=== PATIENT | male | born 1940 | race Caucasian/White ===

== ENCOUNTER 2021-03-20 19:15 | Emergency (ER) | payer MEDICARE, OTHER ==
[2021-03-20] MEDS ORDERED: Lidocaine 2% Jelly 10 ML Urojet MUCMEM ONE (19:34)
[2021-03-20] MEDS ORDERED: HYDROmorphone 0.5 MG/0.5 ML Syringe IM ONE (20:59)
--- NOTE | 2021-03-20 21:06 | EDM.PDOC ---
ED HPI GENERAL MEDICAL PROBLEM - General Chief Complaint: Genitourinary Problem Stated Complaint: PROSTATE ISSUES Time Seen by Provider: 03/20/21 19:33 Source of Information: Reports: Patient History Limitations: Reports: No Limitations - History of Present Illness INITIAL COMMENTS - FREE TEXT/NARRATIVE: Tang is an 80-year-old male presenting to the ED for urinary retention. The patient states he was last able to void a small amount this morning. The patient has a previous history for a TURP about 15 years ago. He has a history of bladder cancer and prostate cancer and is status post radiation therapy for the prostate cancer. Has had intermittent difficulty with urinary retention. He denies any fever, chills, backache but does have significant suprapubic pressure and tenderness. He has having increasing pain. Lower Abdomen Pain Score (Numeric/FACES): 8 - Related Data Allergies Allergy/AdvReac Type Severity Reaction Status Date / Time No Known Allergies Allergy Verified 03/20/21 19:49 Social & Family History - Tobacco Use Tobacco Use Status *Q: Former Tobacco User Used Tobacco, but Quit: Yes Month/Year Tobacco Last Used: 1979 - Caffeine Use Caffeine Use: Reports: Coffee Caffeine Use Comment: 2-3 cups per day - Recreational Drug Use Recreational Drug Use: No ED ROS GENERAL - Review of Systems Review Of Systems: See Below Constitutional: Reports: No Symptoms HEENT: Reports: No Symptoms Respiratory: Reports: No Symptoms Cardiovascular: Reports: No Symptoms Endocrine: Reports: No Symptoms GI/Abdominal: Reports: No Symptoms : Reports: Pain (Pelvic pain extending to the suprapubic region), Urinary Retention Musculoskeletal: Reports: No Symptoms Skin: Reports: No Symptoms Neurological: Reports: No Symptoms Psychiatric: Reports: No Symptoms Hematologic/Lymphatic: Reports: No Symptoms Immunologic: Reports: No Symptoms ED EXAM, RENAL/ - Physical Exam Exam: See Below Exam Limited By: No Limitations General Appearance: Alert, Anxious, Mild Distress Respiratory/Chest: No Respiratory Distress, Lungs Clear, Normal Breath Sounds Cardiovascular: Normal Peripheral Pulses, Regular Rate, Rhythm, No Murmur GI/Abdominal: Normal Bowel Sounds, Soft, Tender (Suprapubic tenderness and fullness) Extremities: Other (Patient had a deer tick on the upper inner left thigh. Is a minimal amount of redness around the embedded deer tick head.) Neurological: Alert, Oriented, Normal Cognition, No Motor/Sensory Deficits Psychiatric: Normal Affect Skin Exam: Erythema (Around the head of the deer tick that is embedded.) Lymphatic: No Adenopathy Course - Vital Signs Last Recorded V/S: Last Vital Signs Temp 36.1 C 03/20/21 20:11 Pulse 72 03/20/21 20:11 Resp 16 03/20/21 20:11 BP 199/81 H 03/20/21 20:11 Pulse Ox 95 03/20/21 20:11 - Orders/Labs/Meds Orders: Active Orders 24 hr Category Date Time Status Garcia Catheter Insertion [Insert Urinary Catheter] [OM. Care 03/20/21 19:45 Ordered PC] Q24H Urinary Catheter Assessment [RC] ASDIRECTED Care 03/20/21 19:34 Active UA W/MICROSCOPIC [URIN] Stat Lab 03/20/21 19:33 Ordered HYDROmorphone [Dilaudid] Med 03/20/21 20:59 Once 0.5 mg IM ONETIME ONE Medication Orders Hydromorphone HCl (Hydromorphone 0.5 Mg/0.5 Ml Syringe) 0.5 mg IM ONETIME ONE Stop: 03/20/21 21:00 Meds: Medications Generic Name Dose Route Start Last Admin Trade Name Freq PRN Reason Stop Dose Admin Hydromorphone HCl 0.5 mg 03/20/21 20:59 Hydromorphone 0.5 Mg/0.5 Ml Syringe IM 03/20/21 21:00 ONETIME ONE Discontinued Medications Generic Name Dose Route Start Last Admin Trade Name Freq PRN Reason Stop Dose Admin Lidocaine HCl 10 ml 03/20/21 19:34 03/20/21 19:46 Lidocaine 2% Jelly 10 Ml Urojet MUCMEM 03/20/21 19:35 10 ml ONETIME ONE Administration - Re-Assessments/Exams Free Text/Narrative Re-Assessment/Exam: 03/20/21 21:02 we ordered a catheter placement. We attempted with a 16 coud but met restrictions so we went down to a 14 coud. Again we came into significant obstruction at the level of the prostate. The third attempt was performed by the physician again restricted access. We tried pressure on the bladder with compressing the suprapubic region to try to express some urine and open up a tract, however, this was unsuccessful. We tried a 16 Chinese silicone catheter without success and then a 14 Chinese silicone catheter without success, and then a 16 Chinese with sender again meaning resistance. At this time, we have exhausted our options for trying to access the bladder through the urethra. I gave the patient option for a suprapubic tap but due to his previous radiation therapy we felt to be better to not to do this approach due to scar tissue and the likelihood evolving over the bladder. I discussed the case with Dr. Ashraf from [facility] who accepted the patient in transfer. We will arrange for the patient to go to the emergency room. I did talk with Dr. Prater in the emergency room who will be expecting the patient. He will go by private vehicle. We will keep him n.p.o. and the patient was given Dilaudid 0.5 mg IM for pain control. Departure - Departure Time of Disposition: 21:05 Disposition: DC/Tfer to [facility] 02 Clinical Impression: Acute urinary retention, History of prostate cancer, History of bladder cancer BPH (benign prostatic hyperplasia) Qualifiers: Lower urinary tract symptom presence: symptoms present Lower urinary tract symptom detail: urinary retention Qualified Code(s): N40.1 - Benign prostatic hyperplasia with lower urinary tract symptoms; R33.8 - Other retention of urine - Discharge Information Referrals: PCP,None [Primary Care Provider] - Sepsis Event Note (ED) - Evaluation Sepsis Screening Result: No Definite Risk - Focused Exam Vital Signs: Vital Signs Temp Pulse Resp BP Pulse Ox 03/20/21 20:11 36.1 C 72 16 199/81 H 95 03/20/21 19:48 36.1 C 72 16 199/81 H 95 - Problem List & Annotations (1) Acute urinary retention SNOMED Code(s): 067051359 Code(s): R33.8 - OTHER RETENTION OF URINE Status: Acute Priority: Medium Current Visit: Yes (2) BPH (benign prostatic hyperplasia) SNOMED Code(s): 412262483 Code(s): N40.0 - BENIGN PROSTATIC HYPERPLASIA WITHOUT LOWER URINRY TRACT SYMP Status: Chronic Priority: Medium Current Visit: Yes Qualifiers: Lower urinary tract symptom presence: symptoms present Lower urinary tract symptom detail: urinary retention Qualified Code(s): N40.1 - Benign prostatic hyperplasia with lower urinary tract symptoms; R33.8 - Other retention of urine (3) History of bladder cancer SNOMED Code(s): 174311293, 489406446 Code(s): Z85.51 - PERSONAL HISTORY OF MALIGNANT NEOPLASM OF BLADDER Status: Chronic Priority: Medium Current Visit: Yes (4) History of prostate cancer SNOMED Code(s): 744634854 Code(s): Z85.46 - PERSONAL HISTORY OF MALIGNANT NEOPLASM OF PROSTATE Status: Chronic Priority: Medium Current Visit: Yes - Problem List Review Problem List Initiated/Reviewed/Updated: Yes - My Orders Last 24 Hours: My Active Orders 03/20/21 19:33 UA W/MICROSCOPIC [URIN] Stat 03/20/21 19:34 Urinary Catheter Assessment [RC] ASDIRECTED 03/20/21 19:45 Garcia Catheter Insertion [Insert Urinary Catheter] [OM.PC] Q24H 03/20/21 20:59 HYDROmorphone [Dilaudid] 0.5 mg IM ONETIME ONE - Assessment/Plan Last 24 Hours: My Active Orders 03/20/21 19:33 UA W/MICROSCOPIC [URIN] Stat 03/20/21 19:34 Urinary Catheter Assessment [RC] ASDIRECTED 03/20/21 19:45 Garcia Catheter Insertion [Insert Urinary Catheter] [OM.PC] Q24H 03/20/21 20:59 HYDROmorphone [Dilaudid] 0.5 mg IM ONETIME ONE
== END 2021-03-20 21:14 ==
LOC: JP.ED 19:15
DX: N40.1 Benign prostatic hyperplasia with lower urinary tract symptoms (principal); R33.8 Other retention of urine; Z85.828 Personal history of other malignant neoplasm of skin; Z85.51 Personal history of malignant neoplasm of bladder
CPT/HCPCS: 51702; 51703; 96372; 99284; 99285; J1170

== ENCOUNTER 2021-07-27 07:26 | Emergency (ER) | payer MEDICARE ==
--- NOTE | 2021-07-27 08:10 | EDM.PDOC ---
ED HPI GENERAL MEDICAL PROBLEM - General Chief Complaint: Genitourinary Problem Stated Complaint: PROSTATE PAIN Time Seen by Provider: 07/27/21 08:04 Source of Information: Reports: Patient, Family, RN Notes Reviewed History Limitations: Reports: No Limitations - History of Present Illness INITIAL COMMENTS - FREE TEXT/NARRATIVE: 81-year-old gentleman presents emergency department day complaint of urinary retention, he has a known history of BPH has had problems with this in the past has had catheter placement in the past as well. Bladder Pain Score (Numeric/FACES): 9 - Related Data Allergies Allergy/AdvReac Type Severity Reaction Status Date / Time No Known Allergies Allergy Verified 03/20/21 19:49 Home Meds: Home Meds Finasteride 5 mg PO DAILY 03/20/21 [History] Losartan [Cozaar] 50 mg PO DAILY 03/20/21 [History] Oxybutynin 5 mg PO DAILY 03/20/21 [History] Sertraline [Zoloft] 50 mg PO DAILY 03/20/21 [History] Simvastatin [Zocor] 40 mg PO BEDTIME 03/20/21 [History] busPIRone [Buspar] 5 mg PO DAILY 03/20/21 [History] carvediloL [Carvedilol] 12.5 mg PO DAILY 03/20/21 [History] metFORMIN [Glucophage] 500 mg PO BIDMEALS 03/20/21 [History] Past Medical History Cardiovascular History: Reports: High Cholesterol Genitourinary History: Reports: BPH, Retention, Urinary Endocrine/Metabolic History: Reports: Diabetes, Type II Oncologic (Cancer) History: Reports: Bladder, Prostate - Infectious Disease History Infectious Disease History: Reports: Chicken Pox - Past Surgical History Male Surgical History: Reports: Prostate Biopsy, TURP-Transurethral Resection of Prostate Social & Family History - Tobacco Use Tobacco Use Status *Q: Never Tobacco User - Caffeine Use Caffeine Use: Reports: Coffee Caffeine Use Comment: 2-3 cups per day - Recreational Drug Use Recreational Drug Use: No ED ROS GENERAL - Review of Systems Review Of Systems: See Below Constitutional: Reports: No Symptoms : Reports: Urinary Retention ED EXAM, RENAL/ - Physical Exam Exam: See Below Exam Limited By: No Limitations General Appearance: Alert, WD/WN, No Apparent Distress Respiratory/Chest: No Respiratory Distress GI/Abdominal: Soft, Non-Tender Course - Vital Signs Last Recorded V/S: Last Vital Signs Temp 97.1 F 07/27/21 07:40 Pulse 82 07/27/21 07:40 Resp 18 07/27/21 07:40 BP 182/85 H 07/27/21 07:40 Pulse Ox - Orders/Labs/Meds Orders: Active Orders 24 hr Category Date Time Status Garcia Catheter Insertion [Insert Urinary Catheter] [OM. Care 07/27/21 08:15 Ordered PC] Q24H Urinary Catheter Assessment [RC] ASDIRECTED Care 07/27/21 08:05 Ordered Departure - Departure Time of Disposition: 08:09 Disposition: Home, Self-Care 01 Condition: Fair Clinical Impression: Acute urinary retention - Discharge Information Instructions: Pain Medicine Instructions, [id number], Acute Urinary Retention, Male Referrals: PCP,None [Primary Care Provider] - Additional Instructions: Use Tylenol for baseline pain control use hydrocodone for breakthrough pain, please keep your follow-up appointment with urology upon return home Sepsis Event Note (ED) - Focused Exam Vital Signs: Vital Signs Temp Pulse Resp BP 07/27/21 07:40 97.1 F 82 18 182/85 H - My Orders Last 24 Hours: My Active Orders 07/27/21 08:05 Urinary Catheter Assessment [RC] ASDIRECTED 07/27/21 08:15 Garcia Catheter Insertion [Insert Urinary Catheter] [OM.PC] Q24H - Assessment/Plan Last 24 Hours: My Active Orders 07/27/21 08:05 Urinary Catheter Assessment [RC] ASDIRECTED 07/27/21 08:15 Garcia Catheter Insertion [Insert Urinary Catheter] [OM.PC] Q24H Plan: Assessment Acuity = acute Site and laterality = urinary retention Etiology = probably secondary to BPH Manifestations = none Location of injury = Home Lab values = none Plan Leg bag is placed recommend follow-up with urology This note was dictated using [employer] voice recognition software please call with any questions on syntax or grammar.
== END 2021-07-27 08:24 | disposition home or self-care (01) ==
LOC: JP.ED 07:26
DX: R33.9 Retention of urine, unspecified (principal); E11.9 Type 2 diabetes mellitus without complications; Z79.899 Other long term (current) drug therapy
CPT/HCPCS: 99283